=== PATIENT | male | born 1990 | race Caucasian/White ===

== ENCOUNTER 2018-06-15 13:44 | Emergency (ER) | payer SELFPAY ==
--- NOTE | 2018-06-15 14:20 | ED Physician Documentation ---
General Adult - HISTORIAN Historian: patient - HPI Stated Complaint: anxiety, out of med Chief Complaint: General Adult Onset: hours Severity: moderate Further Comments: yes (Pt is a 28 yo male visiting [place] from [place] because a member of his 's family is critically ill. Pt usually takes xanax 1 mg qhs, but does not have med with him. Pt will return to [place] in 5 days and requests a short-term refill.) - ROS CONST: other (anxiety) EYES/ENT: none CVS/RESP: none GI/: none MS/SKIN/LYMPH: none NEURO/PSYCH: other (anxiety) - PAST HX Past History: other (anxiety) - SOCIAL HX Smoking History: non-smoker - FAMILY HX Family History: No - REVIEWED ASSESSMENTS Nursing Assessment Reviewed: Yes Vitals Reviewed: Yes Progress - Progress Progress: Short-term refill Rx Xanax 1 mg. Take one by mouth at bedtime. Disp: five General Adult Physical Exam - PHYSICAL EXAM GENERAL APPEARANCE: mild distress EENT: pharynx normal NECK: normal inspection, supple RESPIRATORY: no resp distress, chest non-tender CVS: reg rate & rhythm, heart sounds normal BACK: normal inspection SKIN: warm/dry, normal color EXTREMITIES: non-tender, normal range of motion NEURO: oriented X3, motor nml, sensation nml Discharge Clincal Impression: anxiety, med refill Referrals: Primary Doctor,No [Primary Care Provider] - Condition: Good Disposition: 01 HOME, SELF-CARE Decision to Admit: NO Decision Time: 14:20
[2018-06-15 14:39] VITALS: BP 124/86
[2018-06-15 17:07] LABS: APPEARANCE,URINE CLEAR (CLEAR); COLOR,URINE YELLOW (YELLOW); OCCULT BLOOD,URINE 1+ (NEGATIVE); PH URINE 5.5 (5.0 - 8.0); UROBILINOGEN URINE 0.2 Eu (0.2-1.0)
== END 2018-06-15 14:20 | disposition home or self-care (01) ==
LOC: ED 13:44
DX: F41.9 Anxiety disorder, unspecified (principal); Z76.0 Encounter for issue of repeat prescription
CPT/HCPCS: 81002; 99282